=== PATIENT | male | born 1955 | race Caucasian/White ===

== ENCOUNTER → 2016-10-24 | Outpatient (CLI) | payer OTHER ==
[~2016-10-24] MED LIST: ACIDOPHILUS PO; ACTONEL PO; ADVAIR 250-501 EAC1; ADVAIR 2501 DISK W/D PO; ALLERGY INJECTION INJ; B COMPLEX/FOLIC1 TAB PO; BAYER ASPIRIN325 M1 PO; CALCIUM 500 + D1 TAB PO; CALCIUM PO; CARAFATE PO; CENTRUM SILVER1 EACH PO; CIPRO PO; CLARINEX5 MG PO; CLARITIN10 MG PO; DEXILANT60 MG PO; DULCOLAX PO; FERRO-TIME325 MG PO; FLEXERIL10 M1 PO; FLEXERIL10 MG PO; FLOMAX0.4 M1 DOB; FLOMAX0.4 M1 PO; FLOMAX0.4 MG PO; FOLIC ACID PO; GLYSET50 MG PO; HYDROCODONE/APA1 T15 PO; LACTAID3000 UNI1 PO; LORTAB 10/500 T1 TAB PO; MUCINEX DM1 TAB.SR . PO; NEXIUM PO; NIACIN400 MG PO; PERCOCET10 PO; PERCOCET7.5 PO; PHENERGAN PO; PHENERGAN25 M1 PO; PRAVACHOL20 MG PO; PREDNISONE PO; PREDNISONE5 MG PO; PRENATAL VITAMI1 TA3 PO; PROCARDIA XL PO; PROCARDIA XL30 MG PO; PROCARDIA10 MG PO; REGLAN PO; SINGULAIR PO; SYMBICORT INH; SYNTHROID PO; SYNTHROID125 PO; TRICOR PO; TRILIPIX PO; TRILIPIX135 MG PO; TUMS300 MG( 75 PO; ULTRAM PO; VITAMIN B COMPLEX PO; VITAMIN B12 PO; VITAMIN B6 PO; VITAMIN C PO; VITAMIN D250000 UNIT PO; ZYRTEC10 M2 PO
[2016-10-24 12:13] LABS: CALCIUM SERUM 8.9 mg/dL (8.4-10.2); CREATININE SERUM 0.8 mg/dL (0.6-1.4); GLOM FILT RATE Estimated ABOVE60 mL/min (>60)
== END | disposition home or self-care (01) ==
LOC: CSSDAY 11:12
PROVIDERS: Family Medicine
DX: M85.80 Other specified disorders of bone density and structure, unspecified site (principal); M81.0 Age-related osteoporosis without current pathological fracture
CPT/HCPCS: 82310; 82565; 96374; J3489

== ENCOUNTER 2017-04-30 11:12 | Inpatient (IN) | payer OTHER ==
[~2017-04-30] VITALS: Ht 174 cm; Wt 54.0 kg
--- NOTE | ~2017-04-30 | DS ---
Unit #: [id number] #: [id number] Patient: RISA TODD [id number] [address] [address] [id number] I MR#: [id number] NAME: RISA TODD ROOM: 313 Age: 61 Sex: M Admission Date: 04/30/2017 : 1955 Discharge Date: 05/02/2017 Attending Physician: Jenifer Wan M.D. Primary Care Physician: Piter Amaya M.D. DISCHARGE SUMMARY DISCHARGE DIAGNOSES 1. Left ureteral stones, status post cystoscopy and left stent placement. 2. Acute kidney injury. 3. Sepsis present on admission. 4. Hypertension. 5. History of valvular heart disease. 6. Coronary artery disease. 7. Peptic ulcer disease. 8. Arthritis. 9. Hyperthyroidism. 10. COPD with smoking. CONSULTANTS Dr. Oconnell. PROCEDURES Patient had cystoscopy with left stent placement. LABORATORY DATA Blood cultures negative. Glucose 88, creatinine 0.6. Urine culture negative. ALLERGIES Sulfa, penicillin, morphine. DISCHARGE MEDICATIONS 1. Advair 250/50 one puff inhalation b.i.d. 2. Prednisone 5 mg p.o. daily. 3. Flomax 0.4 daily. 4. Cetirizine 10 mg daily. 5. Phenergan 25 q.4 p.r.n. nausea. 6. Trilipix 135 mg p.o. daily. 7. Procardia XL 30 mg p.o. daily. 8. Ferrous sulfate 1 tablet p.o. daily. 9. Glyset 50 mg 3 times daily with meals. 10. Singulair 10 mg daily. 11. Percocet 10 mg q.6 p.r.n. pain. 12. Flexeril 10 mg daily. 13. Synthroid 0.175 mcg p.o. daily. 14. Vitamin D 250,000 units every week. 15. Ciprofloxacin 500 p.o. b.i.d. for seven days. HOSPITAL COURSE Unit #: [id number] #: [id number] Patient: RISA TODD 61-year-old admitted because of abdominal pain. Left ureteral stone: Patient is seen by urology. Patient had a cystoscopy and stent placed with possible sepsis with tachycardia and leukocytosis. Patient was started on broad spectrum antibiotics and sepsis protocol. The patient will be discharged on Ciprofloxacin for seven more days. Urine culture is negative. Acute kidney injury: The patient received IV fluids. Currently creatinine stable. Hypertension well controlled. COPD stable. DISCHARGE DISPOSITION Home. FOLLOWUP Follow with family physician in one week time. Follow with Dr. Oconnell in one week time for outpatient ureteroscopy for stones. Patient to call for appointment. Discharge time taken is 31 minutes. Dictated by... Karly Bates/avery TD: 05/03/2017 06:34 JOB #: [id number] DISCHARGE SUMMARY Page 1 of 1 X Jenifer Wan MD X DISCHARGE SUMMARY
--- NOTE | ~2017-04-30 | A ---
[facility] Nutrition Therapy DATE: 05/01/17 Patient: RISA TODD Physician: MANSI Address: [address] Room/Bed: [address] [place] [address], Zip: [place] [address] Admit Date: 04/30/17 Date of : [birth year] Height: 5 8.5 Weight: 114 52 NUTRITIONAL ASSESSMENT: REASON: Low BMI Admitting dx: 61 y/o male admitted with bladder stones + XU PMH: gastric surgeries x 2, HTN, CAD, COPD, peptic ulcer disease, hypothyroidism Anthropometrics: Ht: 68.5", Wt: 115 lbs, BMI: 17 (underweight) Past weights: 125 lbs (2014), 150-160 lbs (5539-2822) Labs: BUN 33, creat 1.7, glucose POC 99-167, GFR 42.6 Meds: Fe gluconate, phenergan prn, fenofibrate, prednisone, synthroid I/O & Bowel function: BM 04/29 Skin Integrity: closed surgical incision abdomen, no edema Estimated Nutrition Needs: Increased due to PMH and underweight status/weight loss Assessment: Chart reviewed, events noted. See admitting dx and PMH as stated above. Patient is s/p cystoscopy with L ureter stent placement today. RD assessing due to underweight status, patient confirms above weight of 115 lbs. See past weight history as stated above. He reports 55 lb weight loss in an unknown time frame; per past weight history this loss is likely over past 4-5 years including a 10 lb loss in the past 2 years (mild losses). He has not been eating well at home, states he has a very small stomach related to 2 dion-en-Y surgeries he has had due to ulcers and requires small, frequent meals but that he hates hospital food. Has tried Ensure in the past for about 6 months and says he never put on a pound so he stopped drinking it, is refusing further supplements at this time. He seems to have low motivation to keep up his nutrition status and weight. RD suggested changing diet to 6 small meals, which pt is agreeable to, however he states there is little on the menu he can eat because none of it has any taste. States his is going to bring him in some snacks. RD also encourage pt to have his bring in any outside meals or food he may like. Importance of weight gain and maintaining proper nutrition was stressed, pt not very receptive or interested in nutrition discussion. See recs below, will follow. Dx: Underweight r/t PMH, decreased appetite AEB BMI 17, 55 lb weight loss. Intervention: 6 small meals [facility] Nutrition Therapy DATE: 05/01/17 Patient: RISA KIAN PEYTON Physician: MANSI Address: [address] [place] [address] Room/Bed: [address] [place] [address], Zip: [place] [address] Admit Date: 04/30/17 Date of : [birth year] Height: 5 8.5 Weight: 114 52 Monitoring, Evaluation and Goals: 1. PO intake > 50% of meals. 2. Gradual weight gain towards a healthy BMI range. Monitor: per protocol, criteria to determine if above goals met Recommendations: 1. Please change diet to 6 small meals per patient request. Encourage oral intake, allow pt's to bring in meals/snacks from outside the facility as desired. The patient has refused oral supplements at this time. 2. Please weigh q 3 days for monitoring purposes, as the pt is clinically underweight. RD will follow Mild nutrition risk Respectfully, Kendal Do RD, LD [facility] cc: client file
--- NOTE | ~2017-04-30 | CO ---
Unit #: [id number] #: [id number] Patient: RISA TODD [id number] [address] [address] [id number] I MR#: [id number] NAME: RISA TODD ROOM: 313 Age: 61 Sex: M Admission Date: 04/30/2017 : 1955 Attending Physician: Jenifer Wan M.D. Primary Care Physician: Piter Amaya M.D. Consultation Date: 05/01/2017 CONSULTATION REPORT CHIEF COMPLAINT Left flank pain. HISTORY OF PRESENT ILLNESS This is a 61-year-old gentleman with left flank pain that started earlier last week. CT scan shows 2 stones in the distal ureter; one 5 mm and one 6 mm. The patient has a history of kidney stones in the past. The patient states he has passed multiple stones but nothing as big as the ones he has currently. The patient was admitted to the hospital for pain control. We were consulted for evaluation. PAST MEDICAL/SURGICAL HISTORY 1. Kidney stones. 2. Gastric surgeries x2. 3. Valvular heart disease. 4. Coronary artery disease. 5. COPD. 6. Hypertension. 7. Hyperthyroidism and radioactive iodine treatment. 8. Arthritis. 9. He has had an exploratory laparotomy. 10. Vagotomy. 11. Antrectomy. 12. Keith-en-Y. 13. Hemorrhoidectomy. 14. Carpal tunnel syndrome. 15. Radio iodine treatment for thyroid. 16. Elbow surgery. 17. Foot surgery. 18. Tonsillectomy. 19. Cataract surgery. SOCIAL HISTORY Positive smoking. FAMILY HISTORY Negative for any urologic problems. REVIEW OF SYSTEMS Negative for all 10 systems except for pain in the left. ALLERGIES Sulfa, penicillin, morphine. Unit #: [id number] #: [id number] Patient: RISA TODD MEDICATIONS At home, medications he takes are Reclast, Zyrtec, multivitamin, lactate, iron, Dulcolax, aspirin, vitamin D, Trilipix, Synthroid, Singulair, Pravachol, Procardia, prednisone, Phenergan, oxycodone, Flomax, Flexeril, Advair. PHYSICAL EXAMINATION VITAL SIGNS: He is afebrile. Vital signs stable, but his pulse was up to 124, respirations 16, blood pressure 130/70. HEENT: Head is atraumatic. Eyes equal and reactive to light. NECK: Supple. Trachea is midline. CARDIOVASCULAR: Benign. LUNGS: Benign. ABDOMEN: Soft. No rebound. No guarding. Mildly tender on the left CVA. EXTREMITIES: No edema. No pedal edema. NEUROLOGIC: Cranial nerves II-XII intact. SKIN: No rashes. DIAGNOSTIC STUDIES LABS: White count 14.3. His creatinine was 1.7. Urinalysis showed 2+ blood and 25-50 RBCs. IMAGING: CT scan shows 2 distal left 5- to 6-mm stones. ASSESSMENT Patient with stones in the left ureter. Had a run of tachycardia. I believe the sepsis protocol was maybe initiated with thoughts of possible sepsis, but it was thought may be due just to some issue with his heart arrhythmia. However, with the possibility of UTI, I explained to the patient the pros and cons, risks and benefits for trying to pass the stone, treat the stone or just placing a stent. I recommended we place a stent because it is not likely he will be able to pass 2 stones, and I did not want to take a chance of him not being having a UTI, so I would rather place a stent and not take a chance of performing ureteroscopy. We will come back to treat his stones in the future. I explained the risks, benefits and alternatives. I explained the possibility of stent symptoms. The patient agreed with my assessment and my recommendations, and he consented to cystoscopy and stent placement with eventual treatment of his stones in the future. Dictated by... Karly Cavanaugh/andrew TD: 05/01/2017 09:42 JOB #: [id number] Unit #: [id number] #: [id number] Patient: RISA TODD CONSULTATION REPORT Page 1 of 1 X Matthew Oconnell MD X CONSULTATION REPORT
--- NOTE | ~2017-04-30 | OR ---
Unit #: [id number] #: [id number] Patient: IRSA TODD [id number] [address] [address] [id number] I MR#: [id number] NAME: RISA TODD ROOM: 313 Date of Procedure: 05/01/2017 Admission Date: 04/30/2017 Surgeon: Matthew Oconnell M.D. : 1955 Attending Physician: Jenifer Wan M.D. Primary Care Physician: Piter Amaya M.D. OPERATIVE REPORT PREOPERATIVE DIAGNOSES Left ureteral stones, renal colic, possible urinary tract infection. POSTOPERATIVE DIAGNOSES Left ureteral stones, renal colic, possible urinary tract infection. PROCEDURES PERFORMED Cystoscopy with left stent placement. ANESTHESIA General. DESCRIPTION OF PROCEDURE After informed consent, he was taken to the cystoscopy suite, placed under general anesthetic, positioned in lithotomy. His penis and perineum were prepped and draped in the usual sterile fashion. Cystoscopy was performed showing a normal bladder. He had some trabeculation. There were no stones, no tumors. The entire bladder was inspected. Left and right ureteral orifices were visible. A stent was placed in the left ureter over a wire, it was 5 x 26. There was a good coil in the bladder and the collecting system. One of the stones was visible in the distal ureter on fluoroscopy and the other was not as apparent. There were some debris that came out of the ureter when the wire went up into the ureter. A culture was obtained and sent to the lab. The patient's bladder was drained. He will be taken to recovery and returned to the floor. I explained to him he would need to undergo outpatient treatment for his stones in the future. I explained the risks, benefits, and alternatives. We had also discussed the possibility of attempting to pass the stones, he did not want to do that. He agreed and requested and consented to the procedure. Dictated by... Karly CavanaughB/modl TD: 05/01/2017 10:52 JOB #: [id number] Unit #: [id number] #: [id number] Patient: RISA TODD OPERATIVE REPORT Page 1 of 1 X Matthew Oconnell MD PROCEDURE OPERATIVE NOTE
--- NOTE | ~2017-04-30 | EKG ---
PATIENT: RISA TODD UNIT #: [id number] Ventricular Rate: 87 BPM Atrial Rate: 87 BPM P-R Interval: 136 ms QRS Duration: 98 ms Q-T Interval: 374 ms QTC Calculation(Bezet): 450 ms P [place]: 70 degrees Calculated R [place]: -25 degrees Calculated T [place]: 52 degrees Diagnosis Line: Normal sinus rhythm Diagnosis Line: Possible Left atrial enlargement Diagnosis Line: Left axis deviation Diagnosis Line: Poor data quality Diagnosis Line: Abnormal ECG Diagnosis Line: When compared with ECG of 08-SEP-2009 11:50, Diagnosis Line: No significant change was found Diagnosis Line: Confirmed by WALESKA JAUREGUI MD ([id number]) on 05/03/2017 Diagnosis Line: 7:49:55 AM INTERPRETING MD: JUVENTINO VELAZQUEZ
--- NOTE | ~2017-04-30 | CT4 ---
[facility] A Service of [facility] RADIOLOGY TEXT RESULTS PATIENT: RISA TODD LOCATION: [facility] 313-01 : [birth year] UNIT #: [id number] AGE: [address]: Jenifer Wan MD SEX: M ORDER DR: [id number] [facility] [address] [facility]. [place], [place] [address] [id number] I MR#: [id number] Acc #: [id number] NAME: RISA TODD : 1955 SEX: M STUDY DATE/TIME: 04/30/2017 12:20 UNIT: A PCU ROOM: [facility] STUDY DESCRIPTION: CT Abd and Pelv Wo Cont Attending Physician: Brandi Andersen M.D. Ordering Physician: Ed Maradiaga M.D. Primary Care Physician: Piter Amaya M.D. MEDICAL IMAGING REPORT This report is preliminary unless electronic signature is present EXAM CT abdomen and pelvis without contrast INDICATIONS Left flank pain for the past [address] of the abdomen and pelvis. This CT exam was performed with one or more of the following radiation dose reduction techniques: Automatic exposure control, adjustment of mA and/or kV according to patient size, and iterative reconstruction. COMPARISON 01/15/2016 FINDINGS ABDOMEN WITHOUT CONTRAST: Included lung bases are clear. Liver, spleen, adrenal glands, pancreas, gallbladder have an unremarkable unenhanced appearance. Postsurgical change of the stomach. Bowel loops are nondilated. Moderate to moderately large colonic stool burden. There are multiple small bilateral nonobstructing renal calculi, measuring up to 6 mm. There is a 5-mm calculus in the distal left ureter. There is a 6-mm calculus in the distal left ureter, just above the UVJ. Wocz-dt-ogilexkr left hydronephrosis. PELVIS WITHOUT CONTRAST: No radiodense bladder calculus. No aggressive appearing bone lesion. IMPRESSION 1. Two 5-6 mm calculi in the distal left ureter with ptkp-cu-fvplpalx left hydronephrosis. [facility] A Service of [facility] RADIOLOGY TEXT RESULTS PATIENT: RISA TODD LOCATION: A 313-01 : 55 UNIT #: [id number] AGE: [address]: Jenifer Wan MD SEX: M ORDER DR: 2. Nonobstructing calculi in both kidneys. 3. Krcrxcnd-nl-okmyfqxdyo large colonic stool burden. Dictated by... Riki Singh M.D. THIS IS AN ELECTRONICALLY VERIFIED REPORT Riki Singh M.D. at 05/02/2017 5:02 PM EED/bao TD: 04/30/2017 22:04 JOB #: [id number] MEDICAL IMAGING REPORT Page 1 of 1 COPY
--- NOTE | ~2017-04-30 | HP ---
Unit #: [id number] #: [id number] Patient: RISA TDOD [id number] [address] [place], [place] [address] [id number] MR#: [id number] NAME: RISA TODD ROOM: Age: 61 Sex: M Admission Date: 04/30/2017 : 1955 Attending Physician: Ed Maradiaga M.D. Primary Care Physician: Piter Amaya M.D. HISTORY AND PHYSICAL CHIEF COMPLAINT Left flank pain. HISTORY OF PRESENT ILLNESS The patient is a 61-year-old male with a past medical history of hypertension, valvular heart disease, coronary artery disease, peptic ulcer disease, arthritis, hyperthyroidism, and COPD, who presented to the emergency department for evaluation of the above. The patient states that he has had a four to five day history of left flank pain. He describes the pain as "pain." There are no exacerbating or alleviating factors. He states that it is similar to when he has had kidney stones in the past. He denies any fever, no cough or cold symptoms, no chest pain, and no urinary symptoms. In the emergency department, a CT of the abdomen and pelvis was done and showed two 5-6 mm stones in the distal left ureter. Additional notable labs include urinalysis showing 25-50 red blood cells. White blood cell count is 14.3 and creatinine 1.7. He was given 1 mg of Dilaudid, 30 mg of Toradol, 4 mg of Zofran, and 1 g of Rocephin, as well as a 1 liter normal saline bolus in the emergency department. He is being admitted to [facility] for evaluation and further treatment. PAST MEDICAL HISTORY 1. Admission to [facility] within the past five years for peptic ulcer disease. 2. Admission to [facility] September 15-2008, for chronic gastric ulcer. He underwent exploratory laparotomy with vagotomy, antrectomy, and Keith-en-Y drainage procedure during that admission. 3. Peptic ulcer disease. 4. Arthritis, maintained on chronic prednisone. 5. Hyperthyroidism, status post radioactive iodine treatment. 6. Hypertension. 7. Chronic obstructive pulmonary disease with continued tobacco abuse. 8. Nephrolithiasis. 9. Coronary artery disease. 10. Valvular heart disease followed by Dr. Thomas. PAST SURGICAL HISTORY 1. Exploratory laparotomy with vagotomy, antrectomy, and Keith-en-Y procedure. 2. Hemorrhoid surgery. 3. Carpal tunnel surgery. Unit #: [id number] #: [id number] Patient: RISA TODD 4. Radioactive iodine treatment to the thyroid. 5. Right elbow surgery. 6. Right foot surgery. 7. Tonsillectomy. 8. Cataract surgery. SOCIAL HISTORY The patient lives with his . He smokes two packs of cigarettes daily. He denies alcohol use. FAMILY HISTORY Notable for his mother dying at the age of 62 of congestive heart failure. His dad at the age of 32 of myocardial infarction. ALLERGIES Penicillin, sulfa, morphine. HOME MEDICATIONS 1. Advair. 2. Flexeril. 3. Flomax. 4. Oxycodone. 5. Phenergan. 6. Prednisone. 7. Procardia. 8. Pravachol. 9. Singulair. 10. Synthroid. 11. Trilipix. 12. Vitamin D. 13. Aspirin. 14. Dulcolax. 15. Iron. 16. Lactaid. 17. Multivitamin. 18. Zyrtec. 19. Reclast. Home medications will need to be reviewed and verified. REVIEW OF SYSTEMS A complete review of systems is negative except as indicated in the History of Present Illness. PHYSICAL EXAMINATION VITAL SIGNS: Temperature is 98.1, pulse 124, respirations 16, blood pressure 130/70, and oxygen saturation is 97% on room air. GENERAL: Patient is a male who is awake, alert, and in no acute distress. HEENT: Head is atraumatic. Mucous membranes are moist. NECK: Supple. Trachea is midline. CARDIOVASCULAR: Regular rate and rhythm. LUNGS: Clear to auscultation bilaterally with no increased work of breathing. ABDOMEN: Soft and nontender with bowel sounds present in all four quadrants. GENITOURINARY: Patient does have left costovertebral angle tenderness to palpation. Unit #: [id number] #: [id number] Patient: RISA TODD EXTREMITIES: Nontender with no pedal edema. NEUROLOGIC: Patient is awake and alert. He follows commands. PSYCHIATRIC: Mood and affect are normal. Patient is cooperative. SKIN: Skin of examined areas is warm and dry. DIAGNOSTIC STUDIES LABORATORY: Complete blood count notable for white blood cell count of 14.3. Comprehensive metabolic panel notable for chloride of 98, glucose 126, and BUN and creatinine 29 and 1.7, respectively. Lipase is 18. Urinalysis is notable for 2+ blood with 25-50 red blood cells. IMAGING: CT of the abdomen and pelvis shows two 5-6 mm stones in the distal left ureter. CARDIOLOGY: EKG shows normal sinus rhythm with a rate of 87 beats per minute. ASSESSMENT The patient is a 61-year-old male with: 1. Ureterolithiasis. The patient received one liter of normal saline in the emergency department. 2. Leukocytosis concerning for possible sepsis. The patient's white blood cell count is 14.3. He is on chronic prednisone however. Urinalysis is showing only hematuria. He was given a gram of Rocephin. 3. Acute kidney injury. The patient's creatinine was 1 on November 21, 2016. It is 1.7 today. This appears to be prerenal in etiology as the patient has not been eating well. 4. Hypertension. 5. Valvular heart disease followed by Dr. Thomas. 6. Coronary artery disease. 7. Peptic ulcer disease, status post surgical intervention. 8. Arthritis, maintained on chronic prednisone. 9. Hyperthyroidism. 10. Chronic obstructive pulmonary disease with continued tobacco abuse. PLAN 1. Admit to intermediate level. 2. Healthy-heart diet. 3. N.p.o. after midnight for possible surgical intervention pending urology input. 4. Normal saline at 75 mL/hour. 5. Consult Urology regarding ureterolithiasis. 6. Strict I/Os. 7. Strain urine and send stone for analysis. 8. P.r.n. Dilaudid. 9. P.r.n. Zofran. 10. Blood cultures x2. 11. Urine culture and sensitivity on urine in the lab. 12. Rocephin 1 gram IV daily pending further workup. 13. Sepsis protocol with stat lactic acid and repeat. 14. Cardiac enzymes. 15. TSH. 16. Supplemental oxygen. 17. P.r.n. DuoNebs. 18. Monitor heart rate closely. 19. SCDs for DVT prophylaxis. 20. Repeat labs in the morning. Unit #: [id number] #: [id number] Patient: RISA TODD 21. Additional workup and consultants based on above. 1. Dictated by Karly Escobedo/jass TD: 04/30/2017 18:09 JOB #: [id number] HISTORY AND PHYSICAL Page 1 of 1 X Brandi Andersen MD X HISTORY AND PHYSICAL
[~2017-04-30 11:12] MED LIST changes: -ADVAIR 250-501 EAC1; -BAYER ASPIRIN325 M1 PO; -CIPRO PO; -FLEXERIL10 MG PO; -FLOMAX0.4 M1 DOB; -GLYSET50 MG PO; -PERCOCET10 PO; -PHENERGAN25 M1 PO; -PREDNISONE5 MG PO; -PROCARDIA XL30 MG PO; -SYNTHROID125 PO; -VITAMIN D250000 UNIT PO
[2017-04-30 12:04] LABS: BASOPHIL# 0.1 X10e3 (0-0.3); BASOPHIL% 0.5 % (0-2.5); DIFF IND NO; EOSINOPHIL# 0.1 X10e3 (0-0.7); EOSINOPHIL% 0.4 % (0.0-7.0); HEMATOCRIT 43.9 % (38.0-50.0); HEMOGLOBIN 14.8 gm/dL (13.0-16.0); LYMPHOCYTE# 1.4 X10e3 (1.0-3.5); LYMPHOCYTE% 9.5 % (17.0-45.0); MEAN CELL VOLUME 95.4 FL (83-96); MEAN CORPUSCULAR HEMOGLOBIN 32.3 PG (28-34); MEAN CORPUSCULAR HGB CONC 33.8 g/dL (30-36); MEAN PLATELET VOLUME 7.9 FL (6.5-11.5); MONOCYTE# 1.4 X10e3 (0-1.0); MONOCYTE% 9.9 % (3.0-12.0); NEUTROPHIL# 11.4 X10e3 (1.5-7.1); NEUTROPHIL% 79.7 % (40-75); PLATELET COUNT 268 X10e3 (140-420); RED CELL DISTRIBUTION WIDTH 14.2 % (11.0-15.5); WHITE BLOOD COUNT 14.3 X10e3 (4.0-10.5)
[2017-04-30 12:26] LABS: ALBUMIN SERUM 4.3 g/dL (3.5-5.0); BILIRUBIN, DIRECT 0.2 mg/dL (0.0-0.2); BILIRUBIN,INDIRECT 0.4 mg/dL (0.0-0.9); BILIRUBIN,TOTAL 0.6 mg/dL (0.2-2.0); BUN/CREATININE RATIO 17.05; CALCIUM SERUM 9.2 mg/dL (8.4-10.2); CREATININE SERUM 1.7 mg/dL (0.6-1.4); GLOM FILT RATE Estimated 42.6 mL/min (>60); POTASSIUM 4.2 mmol/L (3.5-5.1); PROTEIN TOTAL SERUM 7.3 g/dL (6.0-8.3)
[2017-04-30 12:38] LABS: URINE SOURCE CLEAN CATCH
[2017-04-30 12:43] LABS: URINE APPEARANCE CLEAR; URINE BILIRUBIN NEG (NEG); URINE BLOOD 2+ (NEG); URINE COLOR DK YELLOW; URINE GLUCOSE NEG (NEG); URINE KETONE NEG (NEG); URINE LEUKOCYTE ESTERASE NEG (NEG); URINE NITRATE NEG (NEG); URINE PROTEIN NEG (NEG); URINE SPECIFIC GRAVITY 1.024 (1.003-1.035)
[2017-04-30 12:46] LABS: URBCS1 AUWI 25-50 /[HPF] (0-2); URINE BACTERIA AUWI NEG (NEGATIVE); URINE SQUAMOUS EPITHELIAL CELL NONE SEEN /[HPF]; UWBCS1 AUWI 0-2 (0-5)
[2017-04-30 12:56] LABS: CULTURE INDICATED? NO; URINE MUCUS PRESENT
[2017-04-30] MEDS ORDERED: ADVAIR 250-501 EAC1 (17:00)
[2017-04-30] MEDS ORDERED: FLOMAX0.4 M1 DOB (17:01)
[2017-04-30] MEDS ORDERED: GLYSET50 MG PO (17:01)
[2017-04-30] MEDS ORDERED: FLEXERIL10 MG PO (17:01)
[2017-04-30] MEDS ORDERED: PHENERGAN25 M1 PO (17:02)
[2017-04-30] MEDS ORDERED: PERCOCET10 PO (17:02)
[2017-04-30] MEDS ORDERED: PREDNISONE5 MG PO (17:03)
[2017-04-30] MEDS ORDERED: PROCARDIA XL30 MG PO (17:03)
[2017-04-30] MEDS ORDERED: SYNTHROID125 PO (17:04)
[2017-04-30] MEDS ORDERED: SINGULAIR PO (17:04)
[2017-04-30] MEDS ORDERED: TRILIPIX135 MG PO (17:04)
[2017-04-30] MEDS ORDERED: VITAMIN D250000 UNIT PO (17:05)
[2017-04-30] MEDS ORDERED: BAYER ASPIRIN325 M1 PO (17:06)
[2017-04-30] MEDS ORDERED: FERRO-TIME325 MG PO (17:06)
[2017-04-30] MEDS ORDERED: ZYRTEC10 M2 PO (17:07)
[2017-04-30 17:10] LABS: POC - CKMB 1.3 ng/mL (0.0-7.9); POC - TROPONIN <0.05 ng/mL (<=0.05)
[2017-04-30 17:34] LABS: CK TOTAL 30 IU/L (36-174)
[2017-04-30 22:34] LABS: CK TOTAL 36 IU/L (36-174)
[2017-05-01 05:18] LABS: ALBUMIN SERUM 3.4 g/dL (3.5-5.0); BILIRUBIN,TOTAL 0.4 mg/dL (0.2-2.0); BUN/CREATININE RATIO 19.41; CALCIUM SERUM 8.1 mg/dL (8.4-10.2); CREATININE SERUM 1.7 mg/dL (0.6-1.4); GLOM FILT RATE Estimated 42.6 mL/min (>60); POTASSIUM 4.1 mmol/L (3.5-5.1); PROTEIN TOTAL SERUM 5.8 g/dL (6.0-8.3)
[2017-05-01 05:27] LABS: HEMATOCRIT 37.3 % (38.0-50.0); MEAN CELL VOLUME 96.5 FL (83-96); MEAN CORPUSCULAR HGB CONC 34.1 g/dL (30-36); MEAN PLATELET VOLUME 8.5 FL (6.5-11.5); RED BLOOD COUNT 3.87 X10e (3.90-5.60); RED CELL DISTRIBUTION WIDTH 14.2 % (11.0-15.5); WHITE BLOOD COUNT 10.3 X10e3 (4.0-10.5)
[2017-05-01 05:28] LABS: HEMOGLOBIN 12.7 gm/dL (13.0-16.0)
[2017-05-02 05:23] LABS: HEMATOCRIT 34.9 % (38.0-50.0); HEMOGLOBIN 11.6 gm/dL (13.0-16.0); MEAN CELL VOLUME 96.7 FL (83-96); MEAN CORPUSCULAR HEMOGLOBIN 32.1 PG (28-34); MEAN CORPUSCULAR HGB CONC 33.2 g/dL (30-36); MEAN PLATELET VOLUME 8.3 FL (6.5-11.5); RED BLOOD COUNT 3.61 X10e (3.90-5.60); RED CELL DISTRIBUTION WIDTH 13.9 % (11.0-15.5); WHITE BLOOD COUNT 10.3 X10e3 (4.0-10.5)
[2017-05-02 06:14] LABS: BUN/CREATININE RATIO 38.33; CALCIUM SERUM 8.6 mg/dL (8.4-10.2); CREATININE SERUM 0.6 mg/dL (0.6-1.4); GLOM FILT RATE Estimated 108.6 mL/min (>60); POTASSIUM 3.8 mmol/L (3.5-5.1)
[2017-05-02 12:32] LABS: KIDNEY STONE ANALYSIS NO STONE SEEN
[2017-05-02] MEDS ORDERED: CIPRO PO (15:46)
== END 2017-05-02 17:02 | disposition home or self-care (01) | DRG 872 ==
LOC: CED 11:12 → C3A PCU 15:45
PROVIDERS: Emergency Medicine; Family Medicine; Internal Medicine; Urology
PROC: 0T778DZ Dilation of Left Ureter with Intraluminal Device, Via Natural or Artificial Opening Endoscopic (ICD-10-PCS; principal; 2017-05-01 07:30)
DX: A41.9 Sepsis, unspecified organism (principal); N17.9 Acute kidney failure, unspecified; E44.0 Moderate protein-calorie malnutrition; N20.1 Calculus of ureter; N39.0 Urinary tract infection, site not specified; Z68.1 Body mass index [BMI] 19.9 or less, adult; I10 Essential (primary) hypertension; I25.10 Atherosclerotic heart disease of native coronary artery without angina pectoris; K27.9 Peptic ulcer, site unspecified, unspecified as acute or chronic, without hemorrhage or perforation; M19.90 Unspecified osteoarthritis, unspecified site; Z79.52 Long term (current) use of systemic steroids; E05.90 Thyrotoxicosis, unspecified without thyrotoxic crisis or storm; J44.9 Chronic obstructive pulmonary disease, unspecified; F17.210 Nicotine dependence, cigarettes, uncomplicated; Z98.49 Cataract extraction status, unspecified eye
CPT/HCPCS: 36415; 74176; 80048; 80053; 80076; 81003; 82365; 82550; 82553; 82947; 83605; 83690; 84443; 84484; 85025; 85027; 87040; 87086; 88300; 93005; 94760; 96374; 96375; 99285; C2617; J0696; J1100; J1170; J1885; J2250; J2405; J2765; J3010; J3370

== ENCOUNTER → 2017-05-01 | Outpatient (CLI) | payer OTHER ==
[~2017-05-01] MED LIST changes: +ADVAIR 250-501 EAC1; +BAYER ASPIRIN325 M1 PO; +CIPRO PO; +FLEXERIL10 MG PO; +FLOMAX0.4 M1 DOB; +GLYSET50 MG PO; +PERCOCET10 PO; +PHENERGAN25 M1 PO; +PREDNISONE5 MG PO; +PROCARDIA XL30 MG PO; +SYNTHROID125 PO; +VITAMIN D250000 UNIT PO
== END | disposition home or self-care (01) ==
LOC: SCT 07:41
DX: R31.9 Hematuria, unspecified (principal)

== ENCOUNTER → 2017-06-09 | Outpatient (CLI) | payer OTHER ==
--- NOTE | ~2017-06-09 | US77 ---
[facility] Service of [facility] RADIOLOGY TEXT RESULTS PATIENT: RISA TODD LOCATION: [facility] : 55 UNIT #: [id number] AGE: [address]: Matthew Oconnell MD SEX: M ORDER DR: [id number] [address] [address] [id number] MR#: [id number] Acc #: [id number] NAME: RISA TODD : 1955 SEX: M STUDY DATE/TIME: 06/09/2017 12:24 UNIT: [facility] ROOM: STUDY DESCRIPTION: US Kidney Bilateral Complete Attending Physician: Matthew Oconnell M.D. Referring Physician: Matthew Oconnell M.D. Ordering Physician: Matthew Oconnell M.D. Primary Care Physician: Piter Amaya M.D. MEDICAL IMAGING REPORT This report is preliminary unless electronic signature is present. EXAM Renal ultrasound 06/09/2017 HISTORY Bilateral flank pain for 1 month and hematuria. History of kidney stone. CT scan of the abdomen and pelvis 04/30/2017 demonstrated a 5 mm obstructing stone in the distal left ureter with bbhy-dv-avtyrfwa left hydronephrosis, follow up. FINDINGS The right kidney measures 7.7 cm, while the left kidney measures 10 cm in longitudinal dimensions. There is no evidence of hydronephrosis. There are non-obstructing renal stones bilaterally. No cystic or solid mass lesions were seen on either kidney. There is normal renal cortical echogenicity. Images of the bladder are normal. The prostate is enlarged. IMPRESSION 1. Non-obstructing renal stones bilaterally. No evidence of hydronephrosis. 2. Images of the bladder are normal. Note is made of enlargement of the prostate. Dictated by... Winston Ortiz M.D. THIS IS AN ELECTRONICALLY VERIFIED REPORT Winston Ortiz M.D. at 06/14/2017 12:02 PM KRT/pcl TD: 06/10/2017 11:04 [facility] of [facility] RADIOLOGY TEXT RESULTS PATIENT: RISA TODD LOCATION: [facility] #: [id number] : 55 UNIT #: [id number] AGE: [address]: Matthew Oconnell MD SEX: M ORDER DR: JOB #: [id number] MEDICAL IMAGING REPORT Page 1 of 1
== END | disposition home or self-care (01) ==
LOC: SGUS 12:24
DX: N20.1 Calculus of ureter (principal)
CPT/HCPCS: 76775